=== PATIENT | female | born 1985 | race Caucasian/White ===

== ENCOUNTER 2021-03-09 19:25 | Emergency (ER) | payer MEDICAID ==
[~2021-03-09] VITALS: Ht 167.6 cm; Wt 110.5 kg
[~2021-03-09 19:25] MED LIST: QUET200T7 PO; THORAZINE
--- NOTE | 2021-03-09 20:05 | NUR ---
CALLED FOR TRIAGE NA X 1
[2021-03-09 20:47] LABS: MEAN CORPUSCULAR HEMOGLOBIN 24.8 pg (27.0-34.8); MEAN CORPUSCULAR HGB CONC 32.7 g/dL (32.4-35.8); MEAN PLATELET VOLUME 7.6 fL (7.4-10.4); PLATELET COUNT 233 x10^3/uL (130-400); RED BLOOD COUNT 4.68 x10^6/uL (3.82-5.3); RED CELL DISTRIBUTION WIDTH 16.8 % (9.6-15.2)
[2021-03-09 20:59] LABS: ALBUMIN 3.1 g/dL (3.4-5.0); ANION GAP 7 mmol/L (5-15); CALCIUM 8.1 mg/dL (8.5-10.1); CHLORIDE 101 mmol/L (98-107); CREATININE 0.85 mg/dL (0.55-1.02)
[2021-03-09] MEDS ORDERED: FLUCONAZOLE 50 MG TABLET PO ONE (21:00)
[2021-03-09] MEDS ORDERED: FLUCONAZOLE 100 MG TABLET ONE ×2 (21:02→21:05)
[2021-03-09 21:16] VITALS: BP 131/81
[2021-03-09 21:31] LABS: BAND#(MANUAL) 0.44 x10^3/uL; BANDS%(MANUAL) 3 % (0-7); LYMPH#(MANUAL) 3.55 x10^3/uL (1-3.4); LYMPHS% (MANUAL) 24 % (22-44); MONOS#(MANUAL) 1.63 x10^3/uL (0.3-2.7); MONOS% (MANUAL) 11 % (2-9); SEG#(MANUAL) 9.18 x10^3/uL (1.8-6.8); SEGS% (MANUAL) 62 % (42-75)
[2021-03-09 21:32] LABS: ANISOCYTOSIS 1+; MICROCYTOSIS 1+; POLYCHROMASIA 1+
[2021-03-09 21:33] LABS: <PLATELET ESTIMATE> ADEQUATE; <PLT MORPHOLOGY> NORMAL PLT MORPH; OVALOCYTES 1+
[2021-03-09 21:34] LABS: PMNS WITH VACUOLES 1+
== END 2021-03-09 21:18 | disposition home or self-care (01) ==
LOC: ED 19:45
DX: B37.9 Candidiasis, unspecified (principal); N89.8 Other specified noninflammatory disorders of vagina; J45.909 Unspecified asthma, uncomplicated
CPT/HCPCS: 36415; 80048; 82040; 84703; 85025; 87806; 99283; 99284; G0475

== ENCOUNTER 2021-03-31 15:05 | Inpatient (IN) | payer MEDICAID ==
[~2021-03-31] VITALS: Ht 167.6 cm; Wt 104.1 kg
[2021-03-31] MEDS ORDERED: ONDANSETRON ODT 4 MG ONE (16:00)
[2021-03-31] MEDS ORDERED: ONDANSETRON ODT 4 MG PO ONE (16:00)
[2021-03-31 16:26] LABS: BASOPHILS % (AUTO) 0 % (0-1); EOSINOPHILS % (AUTO) 0 % (1-7); LYMPHOCYTES % (AUTO) 25 % (22-44); MEAN CORPUSCULAR HEMOGLOBIN 24.1 pg (27.0-34.8); MEAN CORPUSCULAR HGB CONC 32.2 g/dL (32.4-35.8); MEAN PLATELET VOLUME 8.4 fL (7.4-10.4); MONOCYTES % (AUTO) 9 % (2-9); NEUTROPHILS % (AUTO) 65 % (42-75); PLATELET COUNT 340 x10^3/uL (130-400); RED BLOOD COUNT 4.29 x10^6/uL (3.82-5.3); RED CELL DISTRIBUTION WIDTH 16.7 % (9.6-15.2)
[2021-03-31 16:32] LABS: ALANINE AMINOTRANSFERASE 36 U/L (12-78); ALBUMIN 2.3 g/dL (3.4-5.0); ANION GAP 7 mmol/L (5-15); CALCIUM 8.4 mg/dL (8.5-10.1); CHLORIDE 99 mmol/L (98-107); CREATININE 0.74 mg/dL (0.55-1.02)
[2021-03-31 16:34] LABS: ALKALINE PHOSPHATASE 87 U/L (45-117); BILIRUBIN,TOTAL 0.6 mg/dL (0.2-1.0); TOTAL PROTEIN 7.7 g/dL (6.4-8.2)
[2021-03-31] MEDS ORDERED: AZITHROMYCIN 500 MG in SODIUM CHLORIDE 0.9% 250 ML IV ONE (17:00)
[2021-03-31] MEDS ORDERED: CEFTRIAXONE 1,000 MG in DEXTROSE 5% 50 ML IVPB ONE (17:00)
[2021-03-31] MEDS ORDERED: SODIUM CHLORIDE 0.9% 1,000ML IVBOLUS ONE (17:00)
[2021-03-31] MEDS ORDERED: POTASSIUM CHLORIDE 20 MEQ TAB.ER.PRT ONE (17:39)
[2021-03-31] MEDS ORDERED: POTASSIUM CHLORIDE 20 MEQ TAB.ER.PRT PO ONE (18:00)
[2021-03-31] MEDS ORDERED: OMNIPAQUE 350 MG/ML, 75ML BOTTLE ONE (18:35)
--- NOTE | 2021-03-31 18:47 | NUR ---
REPORT RECIEVED FROM LISA GUADARRAMA. PT AMBULATED TO RESTROOM.
--- NOTE | 2021-03-31 18:50 | NUR ---
REPORT RECIEVED FROM LISA GUADARRAMA
[2021-03-31] MEDS ORDERED: MEROPENEM 1 GM in SODIUM CHLORIDE 0.9% 100 ML IV ONE (19:00)
--- NOTE | 2021-03-31 19:12 | NUR ---
REPORT GIVEN TO LISA TYLER
--- NOTE | 2021-03-31 19:14 | NUR ---
RECEIVED REPORT FROM LISA BILL
--- NOTE | 2021-03-31 19:38 | NUR ---
Pt moved to room 41, neg pressure room/airborne precautions. Pt refused vitals at this time. Pt given sandwich and sprite. Resting comfortably on gurney, denies needs at this time.
[2021-03-31] MEDS ORDERED: PROMETHAZINE 25 MG/ML, 1ML IM ONE (20:30)
[2021-03-31] MEDS ORDERED: PROMETHAZINE 25 MG/ML, 1ML ONE (20:31)
--- NOTE | 2021-03-31 20:43 | NUR ---
Pt to be admitted to Surgical, room 463. Report called to LISA Cuellar.
[2021-03-31 21:00] VITALS: BP 124/89
[2021-03-31] MEDS ORDERED: ZOLPIDEM 5MG TABLET PO PRN (21:00)
[2021-03-31] MEDS ORDERED: HYDROcodone/APAP 5/325 TABLET PO PRN (21:00)
[2021-03-31] MEDS ORDERED: AZITHROMYCIN 500 MG in SODIUM CHLORIDE 0.9% 250 ML IV SCH (21:00)
[2021-03-31] MEDS ORDERED: ACETAMINOPHEN 325 MG TABLET PO PRN (21:00)
[2021-03-31] MEDS ORDERED: ONDANSETRON 2MG/ML, 2ML IVPush PRN (21:00)
[2021-03-31] MEDS ORDERED: ENALAPRILAT 1.25 MG/ML, 2ML IVPush PRN (21:00)
[2021-03-31] MEDS ORDERED: BACLOFEN 10 MG TABLET PO PRN (21:00)
[2021-03-31] MEDS ORDERED: VANCOMYCIN PER PHARMACY MC PRN (21:00)
[2021-03-31] MEDS ORDERED: ENOXAPARIN 40 MG/0.4 ML SQ SCH (21:00)
[2021-03-31] MEDS ORDERED: GUAIFENESIN/DM 200-20MG, 10ML UDC PO PRN (21:00)
[2021-03-31] MEDS ORDERED: DOCUSATE 100 MG CAPSULE PO PRN (21:00)
[2021-03-31] MEDS ORDERED: PHARMACOKINETIC CONSULTATION MC ONE (22:30)
[2021-03-31] MEDS ORDERED: PHARMACOKINETIC MONITORING MC PRN (22:30)
[2021-03-31] MEDS ORDERED: VANCOMYCIN 2,500 MG in SODIUM CHLORIDE 0.9% 500 ML IV ONE (22:30)
[2021-03-31] MEDS: MEROPENEM 1 GM in SODIUM CHLORIDE 0.9% 100 ML IV SCH (22:50)
[2021-04-01 01:54] VITALS: BP 108/69
[2021-04-01] MEDS: MEROPENEM 1 GM in SODIUM CHLORIDE 0.9% 100 ML IV SCH ×2 (05:27→14:03)
[2021-04-01 05:52] LABS: MEAN CORPUSCULAR HEMOGLOBIN 24.8 pg (27.0-34.8); MEAN PLATELET VOLUME 8.5 fL (7.4-10.4); PLATELET COUNT 258 x10^3/uL (130-400); RED CELL DISTRIBUTION WIDTH 17.5 % (9.6-15.2)
[2021-04-01 06:03] LABS: ANION GAP 7 mmol/L (5-15); CALCIUM 7.7 mg/dL (8.5-10.1); CHLORIDE 103 mmol/L (98-107)
[2021-04-01 06:44] LABS: <PLATELET ESTIMATE> ADEQUATE; <PLT MORPHOLOGY> NORMAL PLT MORPH; ANISOCYTOSIS 1+; LYMPH#(MANUAL) 1.75 x10^3/uL (1-3.4); LYMPHS% (MANUAL) 17 % (22-44); MICROCYTOSIS 1+; MONOS#(MANUAL) 0.52 x10^3/uL (0.3-2.7); MONOS% (MANUAL) 5 % (2-9); POLYCHROMASIA 1+; SEG#(MANUAL) 8.03 x10^3/uL (1.8-6.8); SEGS% (MANUAL) 78 % (42-75)
[2021-04-01] MEDS ORDERED: VANCOMYCIN 2,000 MG in SODIUM CHLORIDE 0.9% 500 ML IV SCH (11:00)
[2021-04-01] MEDS ORDERED: POTASSIUM CHLORIDE 20 MEQ TAB.ER.PRT PO ONE (11:00)
[2021-04-01 11:50] VITALS: BP 115/78
[2021-04-01 13:35] VITALS: BP 125/86
[2021-04-01 18:40] VITALS: BP 129/87
== END 2021-04-01 20:50 | disposition left against medical advice (07) | DRG 871 ==
LOC: ED 18:25 → EDIP 19:13 → 4NE 21:15
PROVIDERS: ADMIT Internal Medicine; ATTEND Internal Medicine
DX: A41.9 Sepsis, unspecified organism (principal); J18.8 Other pneumonia, unspecified organism; E87.1 Hypo-osmolality and hyponatremia; D50.9 Iron deficiency anemia, unspecified; E83.51 Hypocalcemia; E87.6 Hypokalemia; E88.09 Other disorders of plasma-protein metabolism, not elsewhere classified; F15.10 Other stimulant abuse, uncomplicated; F17.210 Nicotine dependence, cigarettes, uncomplicated; J45.909 Unspecified asthma, uncomplicated; R32 Unspecified urinary incontinence; Z21 Asymptomatic human immunodeficiency virus [HIV] infection status; Z59.0 Homelessness; Z80.9 Family history of malignant neoplasm, unspecified; Z90.49 Acquired absence of other specified parts of digestive tract; Z88.0 Allergy status to penicillin; Z91.040 Latex allergy status
CPT/HCPCS: 36415; 71045; 71275; 80048; 80053; 82728; 83540; 83550; 83605; 83690; 84145; 85025; 86480; 87015; 87040; 87070; 87077; 87116; 87205; 87206; 87806; 93005; 93306; G0378; J0456; J0696; J1650; J2185; J2550; J3370; Q0162; Q9967; G0475; J7030; J7040; J7050